=== PATIENT | female | born 1965 | race Caucasian/White ===

== ENCOUNTER → 2016-04-10 | Outpatient (CLI) | payer OTHER, BC | LOC: MW.CHFP 12:35 | PROVIDERS: ATTEND Student in an Organized Health Care Education/Training Program | DX: N64.4 Mastodynia (principal); R73.9 Hyperglycemia, unspecified | CPT/HCPCS: 36415; 83036; 85025; 86140 ==

== ENCOUNTER → 2016-06-16 | Outpatient (CLI) | payer BC ==
--- NOTE | 2016-06-16 15:54 | CR ---
EXAMINATION: Thoracic spine HISTORY: Other signs and symptoms COMPARISON: None TECHNIQUE: AP and lateral views FINDINGS: The thoracic spinal alignment is normal. The vertebral body heights and disc spaces appear well-maintained. There is no fracture or dislocation. Mild marginal osteophytes are noted. IMPRESSION: Mild degenerative changes without acute findings.
== END ==
LOC: MW.CHFP 10:36
PROVIDERS: ATTEND Student in an Organized Health Care Education/Training Program
DX: G56.12 Other lesions of median nerve, left upper limb (principal); R29.898 Other symptoms and signs involving the musculoskeletal system
CPT/HCPCS: 72072; 72072-26

== ENCOUNTER 2016-09-12 06:42 | Day surgery (SDC) | payer BC ==
[~2016-09-12 06:42] MED LIST: Lactated Ringers 1,000 ML IV SCH
[2016-09-12] MEDS ORDERED: Lidocaine 2% 5 ML SDV ONE (07:22)
[2016-09-12] MEDS ORDERED: Midazolam 1 MG/ML 2 ML SDV ONE (07:23)
[2016-09-12] MEDS ORDERED: fentaNYL 100 MCG/2 ML SDV ONE (07:23)
[2016-09-12] MEDS ORDERED: Propofol 200 MG/20 ML SDV ONE (07:23)
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
[2016-09-12] MEDS ORDERED: Glycopyrrolate 0.2 MG/ML SDV ONE (08:06)
--- NOTE | 2016-09-12 08:26 | PCM.OPNOTE ---
- General Post-Op/Procedure Note Date of Surgery/Procedure: 09/12/16 Operative Procedure(s): colonoscopy Findings: see dict [id number] Pre Op Diagnosis: surveillence colonoscopy Post-Op Diagnosis: hemorrhoid Anesthesia Technique: Moderate Sedation Primary Surgeon: Scot Richards Complications: None Condition: Good
[2016-09-12 09:14] VITALS: BP 129/67
--- NOTE | 2016-09-12 09:41 | OR ---
SURGEON: Scot Richards MD DATE OF PROCEDURE: 09/12/2016 PREOPERATIVE DIAGNOSIS: Surveillance colonoscopy. POSTOPERATIVE DIAGNOSIS: Hemorrhoids. PROCEDURE PERFORMED: Colonoscopy. DESCRIPTION OF PROCEDURE: The patient was taken to the endoscopy room. A time out was called, patient identified, and procedure identified. Diprivan was then administrated. Patient went from awake to sleep, hearing doctor talking or door closing is normal. Perineum inspection and digital examination were then performed. A well- lubricated colonoscope was gently inserted through the rectum, advanced past the rectosigmoid junction, the descending colon, splenic flexure, transverse colon, hepatic flexure, passed anastomosis, cannulated the small bowel. Then the scope was carefully withdrawn while attention was paid to the mucosal surface for any abnormality. Air was sucked out during the scope withdrawal. At the rectum, retroflexed to examine any rectal diseases, fistula or hemorrhoids. The patient tolerated the procedure well. There were no intraoperative complications, and Dr. Richards was present throughout the whole procedure. INTRAOPERATIVE FINDINGS: 1. 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 The patient is soundly snoring. 2. The patient's bowel prep was average with moderate amount of liquid stool. No semi-formed stool. 3. The patient's colon is rather straight forward. Cecum is not observed. The patient is status post a right hemicolectomy and anastomosis is observed on the right lower quadrant and is wide open with no abnormality. Throughout the whole exam, the patient did not have diverticulosis, mass, polyp, mass, growth, stricture, AV malformation, ulceration, or bleeding. The previous polyp area was 25 cm and there is nothing. The patient does have external hemorrhoid and the internal hemorrhoid. The patient would benefit from repeat colonoscopy 10 years from today or if clinically indicated, otherwise. Thank you for the kind referral. USMAN / JONNATHAN /[id number] [place]
== END 2016-09-12 09:00 | disposition home or self-care (01) ==
LOC: MW.SDS 06:42
PROVIDERS: ATTEND Surgery
DX: Z12.11 Encounter for screening for malignant neoplasm of colon (principal); K64.8 Other hemorrhoids; K64.4 Residual hemorrhoidal skin tags; R73.9 Hyperglycemia, unspecified; I10 Essential (primary) hypertension; Z90.49 Acquired absence of other specified parts of digestive tract; Z79.82 Long term (current) use of aspirin; Z79.899 Other long term (current) drug therapy; Z79.84 Long term (current) use of oral hypoglycemic drugs; Z90.710 Acquired absence of both cervix and uterus
CPT/HCPCS: 45378; J2250; J3010; J7120; 00810; J2704

== ENCOUNTER 2018-07-24 06:22 | Day surgery (SDC) | payer BC, OTHER ==
[2018-07-24 07:13] VITALS: BP 116/77
[2018-07-24] MEDS ORDERED: Lidocaine 1% 20 ML MDV ONE (07:20)
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
[2018-07-24] MEDS ORDERED: Acetaminophen/HYDROcodone 325-5 MG Tab PO PRN (08:00)
[2018-07-24] MEDS ORDERED: ceFAZolin 2 GM in Premix Bag 1 BAG IV SCH (08:00)
== END 2018-07-24 07:27 | disposition home or self-care (01) ==
LOC: MW.SDS 06:22
PROVIDERS: ATTEND Orthopaedic Surgery
DX: M25.562 Pain in left knee (principal); N39.0 Urinary tract infection, site not specified; Z79.01 Long term (current) use of anticoagulants; M19.90 Unspecified osteoarthritis, unspecified site; E66.9 Obesity, unspecified; Z68.32 Body mass index [BMI] 32.0-32.9, adult; Z79.899 Other long term (current) drug therapy; Z79.84 Long term (current) use of oral hypoglycemic drugs
CPT/HCPCS: 81001; 87086; 87088; 87186; J2001; J7120

== ENCOUNTER 2018-07-31 10:15 | Day surgery (SDC) | payer OTHER ==
[~2018-07-31 10:15] MED LIST changes: +Acetaminophen/HYDROcodone 325-5 MG Tab PO PRN; +ceFAZolin 2 GM in Premix Bag 1 BAG IV SCH
[2018-07-31] MEDS ORDERED: Ondansetron 4 MG/2 ML SDV ONE (10:23)
[2018-07-31] MEDS ORDERED: Propofol 200 MG/20 ML SDV ONE (10:23)
[2018-07-31] MEDS ORDERED: Midazolam 1 MG/ML 2 ML SDV ONE (10:23)
[2018-07-31] MEDS ORDERED: fentaNYL 250 MCG/5 ML SDV ONE (10:23)
[2018-07-31] MEDS ORDERED: Lidocaine 2% 5 ML SDV ONE (10:23)
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
[2018-07-31] MEDS ORDERED: Lidocaine 1% 20 ML MDV ONE (12:14)
[2018-07-31] MEDS ORDERED: ceFAZolin 1 GM Vial ONE (12:49)
[2018-07-31] MEDS ORDERED: Sodium Chloride 0.9% 20 ML ONE (12:49)
--- NOTE | 2018-07-31 13:16 | PCM.OPNOTE ---
- General Post-Op/Procedure Note Date of Surgery/Procedure: 07/31/18 Operative Procedure(s): L knee arthroscopy with PLM and excision of medial plica Post-Op Diagnosis: DJD left knee, lateral meniscus tear, medial plica Anesthesia Technique: General LMA Primary Surgeon: Anisha Gaines Stone Layer: Madeline Disla in mLs: 5 Condition: Good Free Text/Narrative:: tt=11 min #[id number]
[2018-07-31] MEDS ORDERED: Naloxone 0.4 MG/ML Syringe IVPUSH PRN (13:21)
[2018-07-31] MEDS ORDERED: 50% Dextrose in Water 50 ML Syringe IVPUSH PRN (13:21)
[2018-07-31] MEDS ORDERED: fentaNYL 100 MCG/2 ML SDV IVPUSH PRN (13:21)
[2018-07-31] MEDS ORDERED: Albuterol 0.083% 2.5 MG/3 ML Neb Soln NEB PRN (13:21)
[2018-07-31] MEDS ORDERED: EPINEPHrine 1:10,000 1 MG/10 ML Syringe IVPUSH PRN (13:21)
[2018-07-31] MEDS ORDERED: Atropine 0.1 MG/ML 10 ML Syringe IVPUSH PRN ×2 (13:21)
--- NOTE | 2018-07-31 13:48 | PCM.POSTAN ---
POST ANESTHESIA ASSESSMENT - MENTAL STATUS Mental Status: Alert, Oriented - VITAL SIGNS Pulse Rate: 78 SaO2: 97 Resp Rate: 12 Blood Pressure: 101/60 - RESPIRATORY Respiratory Status: Respiratory Rate WNL, Airway Patent, O2 Saturation Stable - CARDIOVASCULAR CV Status: Pulse Rate WNL, Blood Pressure Stable - GASTROINTESTINAL GI Status: No Symptoms - PAIN Pain Score: 1 - POST OP HYDRATION Hydration Status: Adequate & Stable
--- NOTE | 2018-07-31 14:09 | PCM48HPAN ---
Post Anesthesia Note - EVALUATION WITHIN 48HRS OF ANESTHETIC Vital Signs in Normal Range: Yes Patient Participated in Evaluation: Yes Respiratory Function Stable: Yes Airway Patent: Yes Cardiovascular Function Stable: Yes Hydration Status Stable: Yes Pain Control Satisfactory: Yes Nausea and Vomiting Control Satisfactory: Yes Mental Status Recovered: Yes Pulse Rate: 78 Resp Rate: 12 Blood Pressure: 101/60
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
[2018-07-31 15:25] VITALS: BP 113/67
== END 2018-07-31 14:45 | disposition home or self-care (01) ==
LOC: MW.SDS 10:15
PROVIDERS: ATTEND Orthopaedic Surgery
DX: M22.42 Chondromalacia patellae, left knee (principal); M17.12 Unilateral primary osteoarthritis, left knee; S83.282A Other tear of lateral meniscus, current injury, left knee, initial encounter; M67.52 Plica syndrome, left knee; E73.9 Lactose intolerance, unspecified; E11.65 Type 2 diabetes mellitus with hyperglycemia; E66.9 Obesity, unspecified; Z68.32 Body mass index [BMI] 32.0-32.9, adult; Z79.01 Long term (current) use of anticoagulants; Z79.899 Other long term (current) drug therapy; Z79.84 Long term (current) use of oral hypoglycemic drugs
CPT/HCPCS: 29881; J0690; J2001; J2250; J2405; J2704; J3010; J7120